=== PATIENT | male | born 1960 | race Two or more races ===

== ENCOUNTER 2024-07-10 10:57 | Emergency (ER) | payer MEDICAID, OTHER ==
[~2024-07-10] VITALS: Ht 167.6 cm; Wt 70.4 kg
--- NOTE | 2024-07-10 16:26 | ED.PDOC ---
[place]. trauma (HPI) HPI Comments 63M presents to the Er w/ no prior Hx associated to the c/c of a fall. Pt reports on having a fall by tripping on a rock getting a left ankle swelling w/ a right hand 1st digit skin ovulsion. Denies chills, fever, N/V/D, SOB, CP. Denies any other associated symptom's, modifiers, or recent injuries or sick contact at this time. Chief Complaint: Lower Extremity Time Seen by MD: 15:15 Reviewed notes: Nurses Notes, Medications, Allergies Information Source: Patient Mode of Arrival: Ambulatory Severity: Moderate Timing: Hours Duration: Since onset, Hours Prehospital treatment: None Location: (L) Ankle, (R) Hand (kin Ovulsion) Location of laceration: Other (right hand, thumb, 1st digit) Mechanism: Fall Associated signs and symtoms: None Past Medical History PAST MEDICAL HISTORY: Denies Surgical History: Denies all surgeries Family History Family History: Reviewed,noncontributory to illness, Unknown Social History Smoker: Non-Smoker Alcohol: Denies ETOH Use Drugs: Denies Drug Use Lives In: Home Constitutional: reports: others (left ankle swelling/pain w/ right hand tumb skin ovulsion S/P Fall yesterday); denies: chills, diaphoresis, fatigue, fever, malaise, sweats, weakness EENTM: denies: blurred vision, double vision, ear bleeding, ear discharge, ear drainage, ear pain, ear ringing, eye pain, eye redness, hearing loss, mouth pain, mouth swelling, nasal discharge, nose bleeding, nose congestion, nose pain, photophobia, tearing, throat pain, throat swelling, voice changes, others Respiratory: denies: cough, hemoptysis, orthopnea, SOB at rest, shortness of breath, SOB with excertion, stridor, wheezing, others Cardiovascular: denies: chest pain, dizzy spells, diaphoresis, Dyspnea on exertion, edema, irregular heart beat, left arm pain, lightheadedness, palpit ations, PND, syncope, others Gastrointestinal: denies: abdomen distended, abdominal pain, blood streaked b owels, constipated, diarrhea, dysphagia, difficulty swallowing, hematemesis, melena, nausea, poor appetite, poor fluid intake, rectal bleeding, rectal pain, vomiting, others Genitourinary: denies: burning, dysuria, flank pain, frequency, hematuria, incontinence, penile discharge, penile sore, pain, testicle pain, testicle swelling, urgency, others Neurological: denies: dizziness, fainting, headache, left sided numbness, left sided weakness, numbness, paresthesia, pre-existing deficit, right sided numbness, right sided weakness, seizure, speech problems, tingling, tremors, weakness, others Musculoskeletal: denies: back pain, gout, joint pain, joint swelling, muscle pain, muscle stiffness, neck pain, others Integumetry: denies: bruises, change in color, change in hair/nails, dryness, laceration, lesions, lumps, rash, wounds, others Allergic/Immunocompromised: denies: Difficulty Healing, Frequent Infections, Hives, Itching, others Hematologic/Lymphatic: denies: anemia, blood clots, easy bleeding, easy bruisi ng, swollen glands, others Endocrine: denies: excessive hunger, excessive sweating, excessive thirst, exce ssive urination, flushing, intolerance to cold, intolerance to heat, unexplained weight gain, unexplained weight loss, others Psychiatric: denies: anxiety, bipolar disorder, depression, hopeless, panic disorder, schizophrenia, sleepless, suicidal, others All Other Systems: Reviewed and Negative Physical Exam General Appearance: Mild Distress, Normal HEENT: Normal ENT Inspection, PERRL/EOMI, Pharynx Normal, TMs Normal Neck: Full Range of Motion, Non-Tender, Normal, Normal Inspection Respiratory: Chest Non-Tender, Lungs Clear, No Accessory Muscle Use, No Respiratory Distress, Normal Breath Sounds Cardiovascular: No Edema, No JVD, No Murmur, No Gallop, Normal Peripheral Pulses, Regular Rate/Rhythm Breast Exam: Deferred Gastrointestinal: No Organomegaly, Non Tender, No Pulsatile Mass, Normal Bowel Sounds, Soft Genitalia: Deferred Pelvic: Deferred Rectal: Deferred Extremities: No calf tenderness, Normal capillary refill, Normal inspection, Normal range of motion, Non-tender, No pedal edema Musculoskeletal : Location: Right Extremity Location: Ankle, Thumb Apperance: Swelling, Limited ROM, Tenderness: Mild, Tenderness: Moderate, Other (Right thumb shows avulsion laceration with a possible foreign body) Neurologic: Alert, slab polisher II-XII nml as Tested, No Motor Deficits, Normal Affect, Normal Mood, No Sensory Deficits Cerebellar Function: Normal Reflexes: Normal Skin: Dry, Normal Color, Warm Peripheral Pulses: 1+ carotid (R), 1+ carotid (L) Lymphatic: No Adenopathy Was a procedure done? Was a procedure done?: Yes Sedation Sedation?: No Laceration Repair : Location Right dorsal thumb Length 3 cm Anesthetic: Lidocaine, Without epi Laceration Repair Prep: Shsumi-Clens Laceration Repair Wound Comple: layered repair (1), debridement, extensive undermining, wound margins, foreign body Laceration Repair: Number of sutures (4), Layers Closed (1), Skin, Size (5), Nylon, Simple Informed consent obtained: Yes Risks, benefits, and alternati: Yes Notes Patient accepted the procedure well Differential Diagnosis Multiple Trauma: Fractures, Abrasions, Contusion, Laceration Neck Injury: N/A X-Ray, Labs, Meds, VS Vital Signs Date Time Temp Pulse Resp B/P (MAP) Pulse Ox O2 Delivery O2 Flow Rate FiO2 07/10/24 15:45 99.1 89 15 119/80 (93) 97 99.1 07/10/24 15:45 89 15 97 Room Air 07/10/24 11:37 98.2 91 16 108/71 (83) 96 98.2 X-Ray, Labs, Meds, VS Comment Course in the emergency department eventful Patient came in after a fall complaining of left foot pain and right thumb painful and lacerated The x-rays of the foot and a CT shows calcaneal fracture The right thumb is negative for fracture but has a 3 cm laceration which was repaired Patient will be discharged with a tubular gauze and short leg posterior plaster splint Time of 1ST Reevaluation: 15:45 Reevaluation 1ST: Unchanged Time of 2ND Reevaluation: 19:09 Consultation: PCP, Other (Orthopedist) Patient Education/Counseling: Diagnosis, Treatment, Prognosis, Need For Follow Up Family Education/Counseling: Diagnosis, Treatment, Prognosis, Need For Follow Up, No Family Present Departure 1 Departure Time of Disposition: 18:58 Impression: Primary Impression: Fall (on) (from) other stairs and steps, initial encounter Additional Impressions: Fracture, calcaneus closed Qualified Codes: S92.012A - Displaced fracture of body of left calcaneus, initial encounter for closed fracture Laceration of right thumb Qualified Codes: S61.021A - Laceration with foreign body of right thumb without damage to nail, initial encounter Disposition: HOME / SELF CARE / HOMELESS Condition: Fair Additional Instructions: Keep laceration clean and dry Follow up with your PCP Follow up with an orthopedist Discharged With: Self Critical Care Note Critical Care Time?: No Stability Stability form required: No Heart Score Heart Score: Heart Score Response (Comments) Value History N/A 0 EKG N/A 0 Age >65 2 Risk Factors No known risk factors 0 Troponin N/A 0 Total 2 I personally scribed for RAVEN MASON MD ([email or web address]) on 07/10/24 at 16:26. Electronically submitted by Miguel Angel Torres ([email or web address]). RAVEN MASON MD July 10, 2024 16:26
--- NOTE | 2024-07-10 16:36 | DVH ---
EXAM: XY R ANKLE 3 VIEW CLINICAL INDICATION: fall TECHNIQUE: XY R ANKLE 3 VIEW Comparison: None FINDINGS/IMPRESSION: Cortical Irregularity involving the calcaneus. CT recommended.
--- NOTE | 2024-07-10 16:36 | DVH ---
EXAM: XY R HAND 3 VIEW XRAY CLINICAL INDICATION: Fall TECHNIQUE: XY R HAND 3 VIEW XRAY Comparison: None FINDINGS/IMPRESSION: There is no evidence of acute fracture or dislocation. Soft tissue wound at the level of the distal 1st middle phalanx with radiopaque punctate foreign bodi es present.
[2024-07-10] MEDS: BACITRACIN TOP OINT 1 UD PKG TOP ONE (17:00)
[2024-07-10] MEDS: LIDOCAINE 2%HCL (LOCAL ANESTH.) INJ 20ML MDV ID ONE (17:00)
--- NOTE | 2024-07-10 18:21 | DVH ---
CT CT L FOOT WO CONTRAST INDICATION: fall EXAM DATE: 07/10/2024 04:54 PM COMPARISON: None RADIATION DOSE: CTDIvol: 7.75 mGy, DLP: 174.11 mGy*cm PROCEDURE: Helical CT images were obtained of the left foot without intravenous contrast. Sagittal an d coronal reconstructions are provided. ADDITIONAL IMAGES: None FINDINGS: BONES: Comminuted, mildly displaced calcaneus fracture. JOINT SPACES: Maintained. No joint effusion. SOFT TISSUES: Ankle soft tissue edema. VESSELS: unremarkable. IMPRESSION: Comminuted, mildly displaced calcaneus fracture.
[2024-07-10 19:58] VITALS: BP 134/78; TEMP 98.4
[2024-07-10 20:00] VITALS: PULSE 93; RESP 16; O2SAT 96
[2024-07-10] MEDS: HYDROcodone-ACET 5/325MG TAB PO ONE (20:25)
== END 2024-07-10 20:26 | disposition home or self-care (01) ==
LOC: ER 10:57
DX: S92.012A Displaced fracture of body of left calcaneus, initial encounter for closed fracture (principal); S61.022A Laceration with foreign body of left thumb without damage to nail, initial encounter; W01.0XXA Fall on same level from slipping, tripping and stumbling without subsequent striking against object, initial encounter; Y93.89 Activity, other specified; Y92.89 Other specified places as the place of occurrence of the external cause; Y99.8 Other external cause status
CPT/HCPCS: 13132; 29515; 73130; 73610; 73700